=== PATIENT | female | born 1990 | race Caucasian/White ===

== ENCOUNTER 2019-09-12 05:43 | Emergency (ER) | payer MEDICAID ==
[~2019-09-12] VITALS: Ht 162.6 cm; Wt 74.0 kg
[2019-09-12 06:35] LABS: CLARITY URINE CLOUDY (CLEAR); COLOR URINE DARK YELLOW (YELLOW); KETONES URINE NEGATIVE (NEGATIVE); LEUKOCYTE ESTERASE URINE 1+ (NEGATIVE); NITRITE URINE POSITIVE (NEGATIVE); OCCULT BLOOD URINE NEGATIVE (NEGATIVE); PROTEIN URINE TRACE (NEGATIVE); SPECIFIC GRAVITY URINE 1.031 (1.005-1.030)
[2019-09-12 06:39] LABS: BASOPHILS % 0.6 % (0.0-2.0); EOSINOPHILS % 1.3 % (0.0-5.0); HEMATOCRIT. 38.6 % (36.0-48.0); HEMOGLOBIN. 13.1 g/dL (12.0-16.0); LYMPHOCYTES % 33.5 % (20.0-50.0); MEAN CORPUSCULAR HEMOGLOBIN 29.9 pg (28.0-32.0); MEAN CORPUSCULAR VOLUME 88.4 fL (81.0-99.0); MEAN PLATELET VOLUME 8.2 fl (7.4-10.4); MONOCYTES % 7.2 % (2.0-8.0); NEUTROPHILS % 57.4 % (40.0-76.0); PLATELET 202 x1000/uL (130-400); RED BLOOD CELL COUNT 4.37 mill/uL (4.2-5.4); RED CELL DISTRIBUTION WIDTH 13.1 % (11.6-14.6)
[2019-09-12 06:40] LABS: CHLORIDE 108 mEq/L (98-107)
[2019-09-12 06:43] LABS: INR 1.2; PROTHROMBIN TIME 12.2 sec (9.6-11.0)
[2019-09-12 07:10] LABS: HCG SCREEN NEGATIVE
[2019-09-12] MEDS ORDERED: NITROFURANTOIN 100MG M/M CAPSULE PO ONE (08:00)
[2019-09-12 08:22] VITALS: BP 113/56
== END 2019-09-12 08:27 | disposition home or self-care (01) ==
LOC: ER 05:43
DX: N39.0 Urinary tract infection, site not specified (principal); K59.00 Constipation, unspecified; Z98.890 Other specified postprocedural states
CPT/HCPCS: 36415; 80053; 81003; 81025; 84703; 85025; 93005; 99284

== ENCOUNTER 2019-10-06 22:24 | Emergency (ER) | payer MEDICAID | END 2019-10-06 23:03 | disposition left against medical advice (07) | LOC: ER 22:24 | DX: Z53.21 Procedure and treatment not carried out due to patient leaving prior to being seen by health care provider (principal) ==